=== PATIENT | female | born 1995 | race Caucasian/White ===

== ENCOUNTER 2016-07-05 22:26 | Emergency (ER) | payer OTHER ==
[2016-07-05] MEDS ORDERED: Pantoprazole IV* 40 MG IV ONE (23:05)
[2016-07-05] MEDS ORDERED: NS 0.9% 1000 ML* 1,000 ML IV ONE (23:05)
--- NOTE | 2016-07-05 23:05 | ED ---
Abdominal Pain/Female - HPI Summary HPI Summary: 20 female presents with complaints of diffuse abdominal pain that began approximately around 18:00 today . Patient states the pain would come and go but has became constant since 20:00. Patient has never had similar pain as this before. She denies nausea, vomiting, fever, diarrhea, constipation, vaginal symptoms and urinary symptoms. LBM was this morning and was normal. Patient does state she did have another small bowel movement later in the day as well. Denies blood. She admits to use of occasional alcohol. Does admit to sexual activity today. Her last menstrual cycle was August of last year. She has been followed by her OBGYN for this and they have not yet found a reason for her amenorrhea. Denies exposure to STD's that she knows of. Agrees to test and pelvic examination. No radiation of pain. Has had acid reflux in the past but denies any medical problems/daily medications. Any movement makes the pain worse. She tried taking gas-x and pepto-bismol without any relief. She and her boyfriend have been eating the same foods at the college dorm and boyfriend denies any abdominal pain. Does not think it is food poisoning. Admits to having a cold. - History of Current Complaint Chief Complaint: EDAbdPain Stated Complaint: STOMACH ACHE Time Seen by Provider: 07/05/16 22:46 Hx Obtained From: Patient Hx Last Menstrual Period: August 2015 Onset/Duration: Sudden Onset Timing: Constant Severity Initially: Mild Severity Currently: Moderate Pain Intensity: 7 Pain Scale Used: 0-10 Numeric Location: Diffuse, Discrete At: RUQ, Discrete At: RLQ, Discrete At: LUQ, Discrete At: LLQ, Epigastric Radiates: No Character: Sharp Aggravating Factor(s): Movement Alleviating Factor(s): Nothing - rest Associated Signs and Symptoms: Positive: Negative Allergies/Adverse Reactions: Allergies Allergy/AdvReac Type Severity Reaction Status Date / Time No Known Allergies Allergy Verified 07/05/16 22:34 PMH/Surg Hx/FS Hx/Imm Hx Previously Healthy: Yes Endocrine/Hematology History: Denies: Hx Diabetes Respiratory History: Denies: Hx Asthma GI History: Denies: Hx Gastroesophageal Reflux Disease, Other GI Disorders Psychiatric History: Denies: Hx Anxiety - Surgical History Surgery Procedure, Year, and Place: none - Immunization History Immunizations Up to Date: Yes Infectious Disease History: No Infectious Disease History: Denies: Traveled Outside the [place] in Last 30 Days - Family History Known Family History: Positive: None - Social History Alcohol Use: Occasionally Smoking Status (MU): Never Smoked Tobacco Review of Systems Positive: Chills Eyes: Negative ENT: Negative Cardiovascular: Negative Respiratory: Negative Positive: Abdominal Pain Genitourinary: Negative Musculoskeletal: Negative Skin: Negative Neurological: Negative Psychological: Normal All Other Systems Reviewed And Are Negative: Yes Physical Exam Triage Information Reviewed: Yes Vital Signs On Initial Exam: Initial Vitals Temp Pulse Resp BP Pulse Ox 97.1 F 61 16 128/81 100 07/05/16 22:31 07/05/16 22:31 07/05/16 22:31 07/05/16 22:31 07/05/16 22:31 Vital Signs Reviewed: Yes Appearance: Positive: Well-Appearing, Well-Nourished, Pain Distress - mild Skin: Positive: Warm, Skin Color Reflects Adequate Perfusion, Dry Head/Face: Positive: Normal Head/Face Inspection Eyes: Positive: Normal, Conjunctiva Clear ENT: Positive: Normal ENT inspection, Hearing grossly normal, Pharynx normal, TMs normal Dental: Negative: Percussion Tenderness @, Cervical Lymphadenopathy Neck: Positive: Supple, Nontender, No Lymphadenopathy Respiratory/Lung Sounds: Positive: Clear to Auscultation, Breath Sounds Present Cardiovascular: Positive: Normal, RRR, Pulses are Symmetrical in both Upper and Lower Extremities. Negative: Leg Edema Left, Leg Edema Right Abdomen Description: Positive: No Organomegaly, Soft, Guarding, McBurney's Point Tenderness, Other: - tender on palpation of all quadrants. Negative: Bruit, CVA Tenderness (R), CVA Tenderness (L), Distended, Hepatomegaly, Peritoneal Signs, Splenomegaly Bowel Sounds: Positive: Present Pelvic Exam: Positive: external exam normal, speculum exam normal, bimanual exam normal, no cerv. motion tender, no masses, tender adnexa - very mild tenderness bilaterally. palpating all quadrants of abdomen is much more tender. Negative: active bleeding, discharge, lesions, tender w/ cervical motion, tender uterus, ulcers Musculoskeletal: Positive: Normal, Strength/ROM Intact Neurological: Positive: Normal, Sensory/Motor Intact, Alert, Oriented to Person Place, Time, CN Intact II-III, Reflexes Intact Psychiatric: Positive: Normal, Affect/Mood Appropriate Diagnostics - Vital Signs Vital Signs Temp Pulse Resp BP Pulse Ox 07/05/16 22:31 97.1 F 61 16 128/81 100 - Laboratory Result Diagrams: 07/05/16 23:35 07/05/16 23:35 Lab Statement: Any lab studies that have been ordered have been reviewed, and results considered in the medical decision making process. Re-Evaluation - Re-Evaluation First Eval Re-Evaluation Time: 00:20 Change: Improved - some relief after morphine and zofran administered Second Eval Re-Evaluation Time: 00:37 Comment: states her pain is returning however does not want more pain management at this time Third Eval Re-Evaluation Time: 01:25 Change: Improved Comment: patient states the pain is still there but much less than before, appears to be feeling better. Fourth Eval Re-Evaluation Time: 01:37 Change: Worse Comment: patient's pain increased after drinking contrast and was given some toradol Abdominal Pain Fem Course/Dx - Course Course Of Treatment: Labs, lipase, UA and HCG ordered and unremarkable. Pelvic exam preformed and normal. GC/Chlam and affirm cultures obtained and sent for possible PID. Patient admits to one partner for the past 3 years and no known exposure to STD. Uses condoms as control. Patient was educated on NPO. Agreed to some fluids, protonix, morphine and zofran. Ct abd/pelvis with contrast obtained. During re-evaluation pain increased had patient was given toradol IV due to soft BP and low HR although it is her normal. Patient plan of care was discussed with Dr Montez. Signed out to him at 2:00am - Diagnoses Differential Diagnosis: Positive: Constipation, Ovarian Cyst, Pelvic Inflammatory Disease, Provider Diagnoses: Abdominal pain, diffuse - Provider Notifications Discussed Care Of Patient With: Dr Montez Discharge - Discharge Plan Condition: Stable Disposition: OTHER Discharge Disposition Comment: signed out to dr montez at 2:00am Referrals: Non Staff,Doctor [Primary Care Provider] -
[2016-07-05] MEDS ORDERED: Morphine INJ* 2 MG/ML 1 ML CARPUJECT IV ONE (23:50)
[2016-07-05] MEDS ORDERED: Ondansetron TAB* 4 MG PO ONE (23:50)
[2016-07-05] MEDS ORDERED: Ondansetron INJ* 2 MG/ML VIAL IV ONE (23:51)
[2016-07-05 23:55] LABS: Hematocrit 41 % (35-47); Hemoglobin 14.1 g/dl (12.0-16.0); Mean Corpuscular HGB Conc 34 g/dl (31-36); Mean Corpuscular Hemoglobin 32 pg (27-31); Mean Corpuscular Volume 94 fL (80-97); Mean Platelet Volume 8 um3 (7.4-10.4); Red Cell Distribution Width 13 % (10.5-15); White Blood Count 4.3 10^3/ul (3.5-10.8)
[2016-07-06 00:04] LABS: ALT 14 U/L (7-52); AST 20 U/L (13-39); Albumin 4.6 g/dL (3.2-5.2); Alkaline Phosphatase 28 U/L (34-104); Anion Gap 5 mmol/L (2-11); BUN/Creatinine Ratio 14.1 (8-20); Blood Urea Nitrogen 11 mg/dL (6-24); C Reactive Protein < 1.00 mg/L (< 5.00); CO2 Carbon Dioxide 29 mmol/L (22-32); Calcium 9.8 mg/dL (8.6-10.3); Chloride 102 mmol/L (101-111); EGFR African American 121.1 (>60); EGFR Non-African American 94.2 (>60); Globulin 2.6 g/dL (2-4); Glucose 92 mg/dL (70-100); Lipase 21 U/L (11.0-82.0); Potassium 3.5 mmol/L (3.5-5.0); Sodium 136 mmol/L (133-145); Total Protein 7.2 g/dL (6.4-8.9)
[2016-07-06] MEDS ORDERED: Iohexol 300* (CONTRAST) 10 ML SDV IV ONE (00:51)
[2016-07-06] MEDS ORDERED: Ketorolac INJ* 60 MG/2 ML VIAL IV PUSH ONE (01:36)
[2016-07-06 03:36] VITALS: BP 100/54
--- NOTE | 2016-07-06 07:21 | RAD ---
INDICATION: Diffuse abdominal pain. COMPARISON: There are no prior studies available for comparison. TECHNIQUE: A CT scan of the abdomen and pelvis was performed with intravenous and oral contrast following intravenous injection of 76 ml of Omnipaque 300 nonionic contrast. Contiguous axial sections were obtained from the lung bases through the symphysis pubis. Images were reconstructed in the coronal and sagittal planes. FINDINGS: The lung bases are clear. No pleural effusion is present. The liver and spleen are within normal limits in size without significant focal abnormality. No calcified gallstones are seen. The pancreas appears to be within normal limits in size. The kidneys and adrenal glands are normal in size. No hydronephrosis is seen. No significant focal renal abnormality is seen. The aorta is normal in caliber and demonstrates homogeneous contrast opacification. There is a retroaortic left renal vein. No significant enlarged retroperitoneal lymph nodes are seen. The stomach, small and large bowel appear nondistended. There is a moderate to large amount retained stool present. The appendix is not visualized. Although no inflammatory changes are seen in the right lower quadrant. There is no evidence for diverticulitis or colitis. The uterus is anteverted and normal in size. There is a small amount of free intraperitoneal fluid in the cul-de-sac. No free intraperitoneal air is seen. No significant focal osseous abnormality is seen. IMPRESSION: 1. NO EVIDENCE FOR ACUTE FINDING OR CAUSE FOR THE PATIENT'S ABDOMINAL PAIN IS SEEN. 2. NONVISUALIZATION OF THE APPENDIX NOTED. 3. SMALL AMOUNT OF FREE INTRAPERITONEAL FLUID IN THE CUL-DE-SAC. 4. MODERATE TO LARGE AMOUNT RETAINED STOOL.
--- NOTE | 2016-07-07 08:11 | PN ---
Addendum entered and electronically signed by Kenroy Harrell PA 07/07/16 08:31: Progress Note - Progress Note Note: Patient was contacted by phone and a verbal order was given to the [facility] in [place] for Diflucan 150mg PO once. Patient was notified and will take. Original Note: Progress Note - Progress Note Note: Message left at 0810 at number listed for patient to call the ED for results and treatment options. If call not returned, a letter will be sent to the provided address.
--- NOTE | 2016-07-21 23:50 | ED ---
I, Nallely Cast, scribed for Sammy Montez MD on 07/06/16 at 0309 . Progress - Progress Note Progress Note: SIGN OUT FROM WALTER BROWN. WAITING ON A/P CT RESULTS. - Results/Orders Results/Orders: A/P CT with CT. Read by radiologist IMPRESSION: No localizing signs for acute pathology. Nonvisualization of the appendix. Re-Evaluation - Re-Evaluation First Eval Re-Evaluation Time: 00:20 Change: Improved - some relief after morphine and zofran administered Second Eval Re-Evaluation Time: 00:37 Comment: states her pain is returning however does not want more pain management at this time Third Eval Re-Evaluation Time: 01:25 Change: Improved Comment: patient states the pain is still there but much less than before, appears to be feeling better. Fourth Eval Re-Evaluation Time: 01:37 Change: Worse Comment: patient's pain increased after drinking contrast and was given some toradol 5 Re-Evaluation Time: 03:08 Change: Improved Comment: Pt states feeling better. Will D/C home. Course/Dx - Course Course Of Treatment: Labs, lipase, UA and HCG ordered and unremarkable. Pelvic exam preformed and normal. GC/Chlam and affirm cultures obtained and sent for possible PID. Patient admits to one partner for the past 3 years and no known exposure to STD. Uses condoms as control. Patient was educated on NPO. Agreed to some fluids, protonix, morphine and zofran. Ct abd/pelvis with contrast obtained. During re-evaluation pain increased had patient was given toradol IV due to soft BP and low HR although it is her normal. Patient plan of care was discussed with Dr Montez. Signed out to him at 2:00am - Diagnoses Provider Diagnoses: Abdominal pain, diffuse - Provider Notifications Discussed Care Of Patient With: Dr Montez The documentation as recorded by the Serene iglesias SooYoung accurately reflects the service I personally performed and the decisions made by me, Sammy Montez MD.
== END 2016-07-06 03:35 | disposition home or self-care (01) ==
LOC: ED 22:26
DX: R10.84 Generalized abdominal pain (principal)
CPT/HCPCS: 36415; 74177; 80053; 83605; 83690; 84702; 85025; 86140; 87040; 87480; 87491; 87510; 87591; 87661; 96374; 96375; 99285; J1885; J2270; J2405; Q9967